=== PATIENT | male | born 1990 | race American Indian/Alaskan Native ===

== ENCOUNTER 2017-09-01 18:38 | Emergency (ER) | payer SELFPAY ==
[2017-09-01 19:00] VITALS: BP 137/85; PULSE 76; RESP 18; TEMP 98.7; O2SAT 98
[2017-09-01] MEDS ORDERED: Sodium Chloride 0.9% 1,000 ML IV STA (19:13)
--- NOTE | 2017-09-01 19:13 | ED PDOC ---
Arrival/HPI - General Historian: Patient - General Chief Complaint: GI Problem Time Seen by Provider: 09/01/17 19:09 - History of Present Illness Narrative History of Present Illness (Text): 09/01/17 19:10 27 year old male, no pmh, nkda, complaining of nausea/vomiting/diarrhea x 1-2 days. Pt. stated that he had mal[place] food about 1 night ago, started to have nausea/vomiting and diarrhea several hours later, no abdominal pain, no fever or chills, no numbness or tingling, no chest pain or shortness of breath, no rash, no fatigue, no recent antibiotic use for the past 4 weeks, no recent antibiotic use, no palpitation, no other medical or psychological complaints. ( Luis Madrid) Past Medical History - Provider Review Nursing Documentation Reviewed: Yes - Infectious Disease Hx of Infectious Diseases: None - Pulmonary Hx Respiratory Disorders: No - Neurological Hx Neurological Disorder: No - HEENT Hx HEENT Disorder: No - Renal Hx Pyelonephritis: No - Psychiatric Hx Substance Use: No - Anesthesia Hx Anesthesia: No Family/Social History - Physician Review Nursing Documentation Reviewed: Yes Family/Social History: Unknown Family HX Smoking Status: Heavy Smoker > 10 Cigarettes Daily Hx Alcohol Use: No Hx Substance Use: No Allergies/Home Meds Allergies/Adverse Reactions: Allergies No Known Allergies Allergy (Verified 09/01/17 18:57) Review of Systems - Review of Systems Constitutional: absent: Fatigue, Fevers Eyes: absent: Vision Changes ENT: absent: Hearing Changes Respiratory: absent: SOB, Cough Cardiovascular: absent: Chest Pain Gastrointestinal: Diarrhea, Nausea, Vomiting. absent: Abdominal Pain Musculoskeletal: absent: Arthralgias, Back Pain, Myalgias Skin: absent: Rash, Pruritis Neurological: absent: Headache, Dizziness Physical Exam Vital Signs Reviewed: Yes Temperature: Afebrile Blood Pressure: Normal Pulse: Regular Respiratory Rate: Normal Appearance: Positive for: Well-Appearing, Non-Toxic, Comfortable Pain Distress: None Mental Status: Positive for: Alert and Oriented X 3 - Systems Exam Head: Present: Atraumatic, Normocephalic Pupils: Present: PERRL Extroacular Muscles: Present: EOMI Conjunctiva: Present: Normal Mouth: Present: Moist Mucous Membranes Neck: Present: Normal Range of Motion Respiratory/Chest: Present: Clear to Auscultation, Good Air Exchange. No: Respiratory Distress, Accessory Muscle Use Cardiovascular: Present: Regular Rate and Rhythm, Normal S1, S2. No: Murmurs Abdomen: Present: Normal Bowel Sounds. No: Tenderness, Distention, Peritoneal Signs, Rebound, Guarding Back: Present: Normal Inspection Upper Extremity: Present: Normal Inspection. No: Cyanosis, Edema Lower Extremity: Present: Normal Inspection. No: Edema Neurological: Present: GCS=15, Speech Normal, Motor Func Grossly Intact, Gait Normal, Memory Normal Skin: Present: Warm, Dry, Normal Color. No: Rashes Psychiatric: Present: Alert, Oriented x 3, Normal Insight, Normal Concentration Vital Signs Temp Pulse Resp BP Pulse Ox 09/01/17 18:58 98.7 F 76 18 137/85 98 Medical Decision Making ED Course and Treatment: 09/01/17 19:18 -labs -IVF/pepcid/reglan -Observe and reassess 09/01/17 20:20 -Labs are non-significant with no elevation of wbc -Eating and drinking well, no abdominal pain, symptoms resolved. -Discharge home with pepcid, zofran, BRAT diet, avoid dairy diet until symptoms resolved, follow up with your own pmd and GI within 2 days, return to the Emergency room for any new or worsening signs or symptoms. (Luis Madrid) - Lab Interpretations Lab Results: 09/01/17 19:20 09/01/17 19:20 Lab Results 09/01/17 19:20: WBC 7.7, RBC 5.23, Hgb 14.1, Hct 43.0, MCV 82.2, MCH 27.0, MCHC 32.8, RDW 13.8, Plt Count 250, MPV 10.2, Gran % 44.9 L, Lymph % (Auto) 45.0 H, [place] % (Auto) 7.7 H, Eos % (Auto) 2.0, Baso % (Auto) 0.4, Gran # 3.46, Lymph # 3.5 H, [place] # 0.6, Eos # 0.2, Baso # 0.03 09/01/17 19:20: Sodium 141, Potassium 4.4, Chloride 106, Carbon Dioxide 24, Anion Gap 15, BUN 14, Creatinine 1.0, Est GFR ( Amer) > 60, Est GFR (Non- Af Amer) > 60, Random Glucose 98, Calcium 9.0, Total Bilirubin 0.6, AST 29, ALT 19, Alkaline Phosphatase 49, Total Protein 7.5, Albumin 4.2, Globulin 3.2, Albumin/Globulin Ratio 1.3, Lipase 57 - Medication Orders Current Medication Orders: Discontinued Medications Famotidine (Pepcid) 20 mg IVP STAT STA Stop: 09/01/17 19:14 Last Admin: 09/01/17 19:35 Dose: 20 mg IVP Administration Document 09/01/17 19:35 RD (Rec: 09/01/17 19:46 RD [place] [id number]) Charges for Administration # of IVP Administrations 1 Sodium Chloride (Sodium Chloride 0.9%) 1,000 mls @ 999 mls/hr IV .Q1H1M STA Stop: 09/01/17 20:13 Last Admin: 09/01/17 19:35 Dose: 999 mls/hr eMAR Start Stop Document 09/01/17 19:35 RD (Rec: 09/01/17 19:46 RD [place] [id number]) Intravenous Solution Start Date 09/01/17 Start Time 19:35 End Date 09/01/17 End time 20:35 Total Infusion Time 60 Metoclopramide HCl (Reglan) 10 mg IVP STAT STA Stop: 09/01/17 19:14 Last Admin: 09/01/17 19:39 Dose: 10 mg IVP Administration Document 09/01/17 19:39 RD (Rec: 09/01/17 19:47 RD [place] [id number]) Charges for Administration # of IVP Administrations 1 - PA / [employer] / Resident Statement MD/DO has reviewed & agrees with the documentation as recorded. Disposition/Present on Arrival - Present on Arrival Any Indicators Present on Arrival: No History of DVT/PE: No History of Uncontrolled Diabetes: No Urinary Catheter: No History of Decub. Ulcer: No History Surgical Site Infection Following: None - Disposition Have Diagnosis and Disposition been Completed?: Yes Disposition Time: 20:20 Patient Plan: Discharge - Disposition Diagnosis: Gastroenteritis Disposition: HOME/ ROUTINE Condition: IMPROVED Additional Instructions: -Discharge home with pepcid, zofran, BRAT diet, avoid dairy diet until symptoms resolved, follow up with your own pmd and GI within 2 days, return to the Emergency room for any new or worsening signs or symptoms. Prescriptions: Famotidine [Pepcid] 20 mg PO BID PRN #16 tab PRN Reason: Other Ondansetron [Zofran] 4 mg PO Q8H PRN #10 tab PRN Reason: Nausea/Vomiting Referrals: Cat Ryan, [Primary Care Provider] - Follow up with primary [facility] [Outside] - Follow up with primary Cheikh Mercedes MD [Staff Provider] - Follow up with primary Forms: WORK NOTE
[2017-09-01 19:56] LABS: BASO # 0.03 K/mm3 (0.0-2.0); BASO % 0.4 % (0.0-3.0); EOS # 0.2 (0.0-0.7); GRAN # 3.46 (1.4-6.5); GRAN % 44.9 % (50.0-68.0); LYMPH # 3.5 (1.2-3.4); MEAN CELL VOLUME 82.2 fl (80.0-105.0); MEAN CORPUSCULAR HGB CONC 32.8 g/dl (31.0-37.0); MEAN PLATELET VOLUME 10.2 fl (7.0-11.0); MONO # 0.6 (0.1-0.6); MONO % 7.7 % (1.0-6.0); RED CELL DISTRIBUTION WIDTH 13.8 % (11.5-14.5); WHITE BLOOD COUNT 7.7 10^3/ul (4.5-11.0)
[2017-09-01 20:05] LABS: GFR AFRICAN-AMERICAN > 60; LIPASE 57 U/L (23-300)
[2017-09-01 20:13] LABS: BLOOD UREA NITROGEN 14 mg/dL (7-21); CARBON DIOXIDE 24 mmol/L (21-33); CHLORIDE 106 mmol/L (98-107); POTASSIUM 4.4 mmol/L (3.6-5.0); SODIUM 141 mmol/L (132-148); TOTAL PROTEIN 7.5 g/dL (5.8-8.3)
[2017-09-01 20:14] LABS: ALB/GLOB RATIO 1.3 (1.1-1.8); ALKALINE PHOSPHATASE 49 U/L (38-126); ALT/SGPT 19 U/L (7-56); AST/SGOT 29 U/L (17-59); BILIRUBIN,TOTAL 0.6 mg/dL (0.2-1.3)
[2017-09-01 20:16] LABS: GLUCOSE,RANDOM 98 mg/dL (70-110)
== END 2017-09-01 20:26 | disposition home or self-care (01) ==
LOC: ED 18:38
DX: K52.9 Noninfective gastroenteritis and colitis, unspecified (principal)
CPT/HCPCS: 80053; 83690; 85025; 96361; 96374; 96375; 99283; J2765; J7040